=== PATIENT | male | born 1960 | race Caucasian/White ===

== ENCOUNTER 2024-02-05 09:54 | Inpatient (IN) ==
[2024-02-05] MEDS ORDERED: VERAPAMIL 2.5 MG/ML 2 ML VIAL ** 5 mg/2 ml ONE (10:12)
[2024-02-05] MEDS ORDERED: nitroGLYCERIN DRIP 25,000 MCG/250 ML BTL ONE (10:12)
[2024-02-05] MEDS ORDERED: Heparin 1,000 UNIT/ML 10 ml (10,000 UNITS) CATHLAB/DIALYSIS ONE (10:12)
[2024-02-05] MEDS ORDERED: Heparin 2 UNITS/ML 1000 mls 2,000 ML IV ONE (10:12)
[2024-02-05] MEDS ORDERED: Midazolam 5 mg/5 ml VIAL 1 mg/ml 5 ml VIAL (5 mg) ONE (10:12)
[2024-02-05] MEDS ORDERED: fentaNYL 100 mcg/2 ml 50 MCG/ML VIAL ONE ×2 (10:12→10:35)
[2024-02-05] MEDS ORDERED: Iohexol 350 (CONTRAST) 200 ML MDV IV ONE (10:13)
[2024-02-05] MEDS ORDERED: Lidocaine 1% MPF 5 ML VIAL ONE ×2 (10:13→10:48)
[2024-02-05] MEDS ORDERED: Bivalirudin 250 MG VIAL ONE (10:22)
[2024-02-05 10:23] LABS: ABS Basophils 0.1 10^3/uL (0.0-0.1); ABS Eosinophils 0.2 10^3/uL (0.0-0.5); ABS Lymphocytes 1.5 10^3/uL (1.0-4.8); ABS Monocytes 0.6 10^3/uL (0.0-1.1); ABS Neutrophils 9.4 10^3/uL (1.5-7.6); ABS Nucleated RBC 0.01 10^3/ul; Eosinophil % 1.9 %; Hematocrit 43.8 % (38-53); Lymphocyte % 12.4 %; Mean Corpuscular Hemoglobin 30.2 pg (27-33); Mean Corpuscular Hgb Conc 34.3 g/dL (31-36); Mean Corpuscular Volume 87.9 fL (80-97); Nucleated Red Blood Cells % 0.1 %/100WBC (0.0-0.8); Platelet Count 263 10^3/uL (150-450); Red Blood Count 4.98 10^6/uL (4.06-5.63); White Blood Count 11.7 10^3/uL (3.6-10.2)
[2024-02-05] MEDS ORDERED: Propofol 10 MG/ML 20 ML BTL ONE (10:47)
[2024-02-05] MEDS ORDERED: Phenylephrine 40 mcg/mL 10mL (400mcg) SYRINGE ONE (10:47)
[2024-02-05 10:50] LABS: Albumin 4.2 g/dL (3.2-5.2); Albumin/Globulin Ratio 1.6 (1-3); Calcium 8.7 mg/dL (8.6-10.3); Creatinine, Serum 0.84 mg/dL (0.67-1.17); Globulin 2.6 g/dL (2-4); Potassium 4.1 mmol/L (3.5-5.0); Total Bilirubin 0.6 mg/dL (0.2-1.0); Total Protein 6.8 g/dL (6.4-8.9); eGFR CKD-EPI 97.4 (>60)
[2024-02-05 10:53] LABS: Activated Partial Thrombo Time 32.3 seconds (26.0-38.0); INR 1.05 (0.83-1.13)
[2024-02-05] MEDS ORDERED: Propofol 10 MG/ML 50 ML BTL ONE (12:00)
[2024-02-05] MEDS: NS 0.9% 1000 ml BAG 1,000 ML IV SCH (13:21)
[2024-02-05] MEDS ORDERED: fentaNYL 100 mcg/2 ml 50 MCG/ML VIAL IV SLOW PU PRN (15:55)
[2024-02-05] MEDS: Lidocaine 1% MPF 2 ML VIAL SUBCUT ONE (16:32)
[2024-02-06 04:20] LABS: ABS Basophils 0.1 10^3/uL (0.0-0.1); ABS Eosinophils 0.2 10^3/uL (0.0-0.5); ABS Lymphocytes 1.9 10^3/uL (1.0-4.8); ABS Monocytes 0.8 10^3/uL (0.0-1.1); ABS Neutrophils 11.8 10^3/uL (1.5-7.6); Eosinophil % 1.6 %; Hematocrit 40.9 % (38-53); Hemoglobin 14.1 g/dL (13.2-16.3); Lymphocyte % 13.1 %; Mean Corpuscular Hemoglobin 30.3 pg (27-33); Mean Corpuscular Hgb Conc 34.5 g/dL (31-36); Mean Corpuscular Volume 87.8 fL (80-97); Mean Platelet Volume 8.8 fL (7.5-11.2); Platelet Count 263 10^3/uL (150-450); Red Blood Count 4.66 10^6/uL (4.06-5.63); Red Cell Distribution Width 14.3 % (12-17); White Blood Count 14.8 10^3/uL (3.6-10.2)
[2024-02-06 05:05] LABS: ALT 62 U/L (7-52); Albumin 3.8 g/dL (3.2-5.2); Albumin/Globulin Ratio 1.6 (1-3); Alkaline Phosphatase 83 U/L (35-149); Anion Gap 9 mmol/L (2-16); Blood Urea Nitrogen 16 mg/dL (6-24); CO2 Carbon Dioxide 25 mmol/L (22-32); Calcium 8.6 mg/dL (8.6-10.3); Chloride 102 mmol/L (101-111); Cholesterol 164 mg/dL; Creatinine, Serum 0.76 mg/dL (0.67-1.17); Globulin 2.4 g/dL (2-4); Glucose 108 mg/dL (70-100); HDL Cholesterol 29.6 mg/dL; LDL Cholesterol 106 mg/dL; Sodium 136 mmol/L (135-145); Total Bilirubin 1.1 mg/dL (0.2-1.0); Total Protein 6.2 g/dL (6.4-8.9); Triglycerides 142 mg/dL; eGFR CKD-EPI 100.4 (>60)
[2024-02-06 08:03] LABS: Potassium Redraw 3.9 mmol/L (3.5-5.0)
[2024-02-06] MEDS: Magnesium Sulfate 2 gm BAG 2 GM/50 ML BAG IVPB ONE (11:31)
[2024-02-06 11:45] LABS: TSH Ultra Thyroid Stim Horm 1.92 mcIU/mL (0.34-5.60)
[2024-02-06 11:48] LABS: Free T3 3.05 pg/mL (2.5-3.9)
[2024-02-06 11:49] LABS: Free T4 0.91 ng/dL (0.61-1.12)
[2024-02-07 05:16] LABS: Hematocrit 40.5 % (38-53); Hemoglobin 13.9 g/dL (13.2-16.3); Mean Corpuscular Hemoglobin 30.7 pg (27-33); Mean Corpuscular Hgb Conc 34.4 g/dL (31-36); Mean Corpuscular Volume 89.1 fL (80-97); Mean Platelet Volume 8.9 fL (7.5-11.2); Platelet Count 234 10^3/uL (150-450); Red Blood Count 4.55 10^6/uL (4.06-5.63); Red Cell Distribution Width 14.2 % (12-17); White Blood Count 10.8 10^3/uL (3.6-10.2)
[2024-02-07 14:18] VITALS: BP 130/92
== END 2024-02-07 14:00 | disposition home or self-care (01) | DRG 174 ==
LOC: ED 09:54 → ICU 10:15 → CHICATH 10:15 → ICU 12:05 → OBSVTOIN 12:06
PROVIDERS: ADMIT Emergency Medicine; ATTEND Emergency Medicine